=== PATIENT | female | born 1970 | race Caucasian/White ===

== ENCOUNTER 2018-02-17 06:26 | Observation (INO) ==
[~2018-02-17 06:26] MED LIST: CefOXitin Inj 2 GM in Sodium Chloride 0.9% 100 ML IV ONE; LIDOCAINE W/ SODIUM BICARB 0.5 ML SYR ONE; LIDOCAINE W/ SODIUM BICARB 0.5 ML SYR SUBD ONE; Lactated Ringers 2,000 ML PRIMARY IV ONE; Sodium Chloride 0.9% 100 ML IV ONE
[2018-02-17] MEDS: Lactated Ringers 1,000 ML PRIMARY IV SCH ×4 (06:38→15:37)
[2018-02-17 06:42] LABS: BILIRUBIN,URINE NEGATIVE (NEG); CLARITY,URINE CLEAR (CLEAR); COLOR,URINE YELLOW (Y); GLUCOSE, URINE (UA) NEGATIVE (NEG); OCCULT BLOOD,URINE SMALL (NEG); PROTEIN,URINE TRACE mg/dl (NEG); UROBILINOGEN,URINE 0.2 EU/dL (0.2)
[2018-02-17 06:43] LABS: URINE SPECIFIC GRAVITY - MAN 1.025
[2018-02-17] MEDS ORDERED: BUPIVACAINE 0.25% W/ EPI - 10 ML VIAL ONE (06:47)
[2018-02-17] MEDS ORDERED: LIDOCAINE HCL 2 % 10 ML JELLY URO-JECT TOPICAL ONE ×2 (06:47→08:51)
[2018-02-17 06:50] LABS: URINE SAMPLE TYPE CLEAN CATCH URINE
[2018-02-17] MEDS ORDERED: Acetaminophen 1000mg Inj 1,000 MG/100 ML VIAL IV ONE (06:50)
[2018-02-17] MEDS ORDERED: SCOPOLAMINE HYDROBROMIDE 1.5 MG - 1 EACH PATCH TRANSDERM ONE (06:50)
[2018-02-17 06:51] LABS: BACTERIA,URINE RARE; SQUAMOUS EPITHELIAL CELL,UR MANY
[2018-02-17 06:56] LABS: Hematocrit [HCT] 40.9 % (37.0-47.0); Hemoglobin [HGB] 13.4 g/dL (12.0-16.0)
[2018-02-17] MEDS ORDERED: KETAMINE 100 MG/1 ML - 5 ML ONE (07:08)
[2018-02-17] MEDS ORDERED: MIDAZOLAM 5 MG/1 ML ONE (07:08)
[2018-02-17] MEDS ORDERED: SUFENTANIL 50 MCG/1 ML ONE (07:08)
[2018-02-17] MEDS ORDERED: PROPOFOL 10 MG/1 ML (200 MG/20 ML) VIAL IV ONE (07:08)
[2018-02-17] MEDS ORDERED: ROCURONIUM 10 MG/1 ML - 5 ML VIAL IVP ONE (07:28)
[2018-02-17] MEDS ORDERED: LIDOCAINE MPF 2% - 5 ML (20 MG/1 ML) ONE (07:30)
[2018-02-17] MEDS ORDERED: Sodium Chloride 0.9% vial 10 ML ONE (07:30)
[2018-02-17] MEDS ORDERED: ONDANSETRON 4 MG/2 ML VIAL IVP PRN (07:37)
[2018-02-17] MEDS ORDERED: LIDOCAINE W/ SODIUM BICARB 0.5 ML SYR SUBD PRN (07:37)
[2018-02-17] MEDS ORDERED: Prochlorperazine Edisylate Inj 10mg/2ml vial IVP PRN (07:37)
[2018-02-17] MEDS ORDERED: ATROPINE SULFATE 0.4 MG/1 ML VIAL IVP PRN (07:37)
[2018-02-17] MEDS ORDERED: fentaNYL Inj 100 MCG/2 ML VIAL IVP PRN (07:37)
[2018-02-17] MEDS ORDERED: Ondansetron ODT Tab 8 MG TAB PO PRN ×2 (07:37→10:36)
--- NOTE | 2018-02-17 07:38 | OB.OP.NOTE ---
Operative Report Surgeon: Abdiel Management Architect: Jesse Muñiz MD Anesthesia Type: General Anesthesia Provider: Halle Sarah CRNA Surgery Date: 02/17/18 Preoperative Diagnosis: Menorrhagia with unsuccessful treatment with monophasic combined oral contraceptive pills. Dysmenorrhea. Patient desires definitive management with hysterectomy. The patient declines other alternatives with continued medical management or with endometrial ablation. Postoperative Diagnosis: Same Procedure: Robotic-assisted laparoscopic hysterectomy. Bilateral salpingectomy Estimated Blood Loss (mL): 130 Fluids: 1800 mL LR. 125 mL urine. Toradol 15 mg IV. B&O suppository per rectum Complications: None apparent Findings at Surgery: Slightly enlarged uterus Fallopian tubes status post tubal ligation. The patient had informed me that the tubal ligation was done 6 weeks laparoscopically but the fallopian tubes weren't sections as though a tubal was completed historically. The ovaries bilaterally appeared normal and were left intact. This is per patient request to not have her ovaries removed. Indications for the Procedure: Recently, The patient is a 47-year-old Using bilateral tubal ligation for contraception with menometrorrhagia for several months. The patient also has dysmenorrhea. Please see my HPI below when I first saw her in 2 months ago. The patient has been on OCPs For 2 months and is being treated for hypothyroidism that went untreated for more than a year but the patient is still having MMR. The patient desires Definitive management with a hysterectomy. The patient expressed that she did not want to try an endometrial ablation secondary to her history of dysmenorrhea. The patient did have an endometrial biopsy. Inactive endometrium with exogenous hormone effect. No hyperplasia was seen with the endometrial biopsy. Currently, the patient states that she would like to keep her ovaries unless the ovaries appear abnormal or there is endometriosis. Patient history: The patient is a 47-year-old LMP 11/24/2017 with a history of a laparoscopic bilateral tubal ligation for contraception who presents today for menometrorrhagia. The patient's recent history is that the patient had regular menses until September 2017. Then the patient did not have a menses for 6 weeks and started bleeding on 11/24/2017 and has bled since that time. The patient was started on Provera on 12/06/2017 and this helped her bleeding somewhat but the patient continues to have some bleeding now. The patient also has had some cramping. The patient does not have a history of MMR. Since her last child who is age 10, the patient states her menses have been fairly regular. The patient saw her primary care provider in November 2017 and had a normal Pap smear with negative HPV. The patient does report a history of hypothyroidism and she was on thyroid medicine but she ran out of the medicine and has not had follow-up. Past medical history without hypertension, diabetes or asthma. The patient does report the thyroid issues. Past surgical history significant for low back surgery with the fusion of L5-S1 , laparoscopic bilateral tubal ligation, and the patient I've years ago had an abdominoplasty and breast augmentation. The patient has allergies to oxycodone. The patient is not allergic to Tylenol. The patient does not smoke tobacco. Never has. Rare alcohol. No drugs. OB history vaginal delivery X4 with the largest being 9 lbs. 6 oz.No complications for her. The patient also had 1 ectopic , 2 miscarriages and one elective AB. 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 The patient had an optometry exam 1 or 2 years ago. The patient does not have a history of glaucoma. The patient has a family history of heart disease, diabetes, colon cancer, and the patient's One sister had a spontaneous subarachnoid hemorrhage and the patient's other sister had a brain bleed of some type. Patient not sure. The patient today did have a normal MRA of her brain in 2014 except for some mild peripheral vascular disease of the internal carotid arteries. Assessment & Plan Problems 1. Menometrorrhagia N92.1 The patient has menometrorrhagia and this continues even though the patient has been on medroxyprogesterone and then a monophasic combined oral contraceptive pill. The patient did have an endometrial biopsy which showed inactive endometrium with exogenous hormone effect. No hyperplasia. The patient was also found to be hypothyroid and levothyroxine was started almost 2 months ago. The patient and I discussed options of continued use of oral contraceptive pills and her levothyroxine and hopefully her MMR would improve. Mirena IUD was also discussed with patient but patient declined. We also discussed endometrial ablation with [employer] and due to the fact that the patient has dysmenorrhea, the patient does not want to try the NovaSure endometrial ablation. The patient wishes definitive management with a hysterectomy And bilateral salpingectomy. The Indications, Alternatives, benefits, and risks were discussed with the patient, but not limited to, infection, bleeding, damage to bowel, bladder, nerve, vessel, blood transfusion with associated risk, Possible laparotomy to complete surgery, severe postoperative infection requiring readmission and re-operation and possible transfer to a tertiary care hospital for further treatment and surgery, blood clots to the legs or lungs, need for hormone therapy, chronic pain, pain with intercourse, poor wound healing especially since the patient has had an abdominoplasty in the past, even though the patient does not have significant prolapse currently, the patient may have prolapse after the hysterectomy requiring surgery to correct the vaginal prolapse-I discussed this with the patient on the morning of the surgery after thinking about this with the patient 's history being a with her largest baby being 9 lbs. 6 oz. (Consent form was amended with date and time), and the low risk of were discussed with the patient in detail. We also discussed a bilateral oophorectomy since the patient is 48 years old and the average age of menopause is 51-52. We also discussed the risk of ovarian cancer is 1 and 70 patients. We also discussed the April 2002 women's health initiative study article that discussed patients who were in their 60s taking both an estrogen and a progestin had a slight increased risk for breast cancer after 5 years of taking hormone therapy. I explained to the patient that usually I have patients on hormone therapy for 5 years and then determine how they do off of the hormone therapy. Most patients do well off hormone therapy but there is an occasional patient that needs to continue this. As long as the patient understands the risk of breast cancer are slightly increased with hormone therapy after 5 years, I would continue the estrogen therapy. Patient expressed understanding. Also we discussed that I like patient to have vaginal abstinence for 10 weeks after surgery to allow for vaginal cuff healing. The patient expressed understanding and the consent form was signed. Currently, the patient would like to keep her ovaries unless her ovaries appear abnormal or there is endometriosis. If the repeat ovaries appear abnormal, I would like to remove them and the patient stated that this is fine and this is written on the consent form. If I find endometriosis at the time of surgery, I would suggest taking the ovaries and the patient expressed concurrence with this and would like her ovaries removed if she has endometriosis. I also explained to the patient that in the next week if she changes her mind and would like her ovaries removed with the surgery, that would be fine. She just would let me know prior to the surgery. Of note, the patient did consider oophorectomy and would like to keep her ovaries unless they appear abnormal or there is endometriosis present. I expressed understanding with the patient's desire to keep her ovaries. Description of Procedure: After the risks, benefits, alternatives and indication of a robotic-assisted laparoscopic hysterectomy and bilateral salpingectomy and oophorectomy if her ovaries appeared abnormal were discussed with the patient in detail, the patient had signed a consent forms previously and updated them on the day of surgery, the patient was taken to the operating room. The patient was placed on the operating room table ensuring that her low back was comfortable since she has had low back surgery. The patient underwent general endotracheal anesthesia without complication. The patient was placed in yellowfin stirrups in the dorsal lithotomy position. A FLOORWORKER DISTRIBUTOR exam was completed. The Cytotec tablets that the patient placed last night was to be removed but I could not palpate the tablet. This was for cervical ripening. This would allow the uterine manipulator to be placed easier. The patient's cervix was palpated. The uterus was attempted be palpated but secondary to the patient's body habitus was slightly difficult to palpate. Fundus of the uterus was slightly enlarged and about 4 cm below the patient's umbilicus. The patient was prepped and draped sterilely. Attention was turned to the patient's vagina and bladder. A Sy catheter was placed to drain the patient's bladder. A weighted speculum was placed posteriorly and then a [place] retractor was placed anteriorly and the cervix was minimally visualized and was very high in the patient's pelvis. The cervix was grasped with a single-tooth tenaculum. The uterus was sounded to 10 cm. A 10 cm balloon tip was selected. A small Brad ring and uterine manipulator was selected. The uterine manipulator was assembled. I placed the balloon tip through the patient's cervix and the balloon was insufflated. The Brad ring was then placed around the patient's cervix in the usual fashion and by palpation the Brad ring was determined to be around the patient's cervix 360. Gloves were changed. Attention was then turned to the patient's abdomen. Marcaine with epinephrine was injected supraumbilically and then about a 1.4 cm incision was made. Sharp towel clamps were then placed on either side of that incision for elevating the patient's abdomen and the varies needle was placed intra-abdominally. Saline was used to ensure that the varies needle was intra- abdominal and the saline test was positive for the varies needle being intra- abdominal. CO2 gas was then allowed to be insufflated on low flow initially and then high flow. After about 4 L of CO2 gas was insufflated into the patient 's abdomen, the abdomen was tympanic. The varies needle was removed. The trocar and sleeve with the scope in place was placed under direct visualization while tenting up the patient's abdomen with the towel clamps. Under direct visualization, the patient's abdomen was entered without complication. The abdomen was inspected. The appendix was not visualized. Liver appeared normal. The right lateral abdomen was then inspected and under direct visualization, Marcaine with epinephrine was injected into the skin and then the subcutaneous tissue and about a 1 cm incision was made. The trocar and sleeve was then placed under direct visualization. The same was done on the left lateral abdomen. 3 ports were then in the patient's abdomen. The robot was then brought over to the table and the 3 ports were docked to the robot in the usual fashion. The monopolar scissors were placed in the right lateral port, the PK bipolar was placed in the left lateral port and the camera was placed in the supraumbilical port. Smoke evacuator was placed on the right lateral port. Attention was then turned to the robotic console. I was able to visualize the uterus and tubes and ovaries. Both ovaries appeared normal and the decision was made to keep both ovaries intact since that was the patient's wishes. Photographs were taken of the ovaries, uterus, fallopian tubes. The patient had informed me that she had had a tubal ligation and she thought she had had a laparoscopic tubal ligation about 6 weeks but the fallopian tubes appeared in sections such as though she had a tubal with a minilaparotomy and a bilateral partial salpingectomy. Attention was turned to the patient's right fallopian tube and the mesosalpinx was bovied with the bipolar secondary to vascularity and then incised with the monopolar scissors all the way up to the cornua keeping the fallopian tube intact. The same was done on the left side. There appeared to be very good hemostasis. The patient's right round ligament was bovied using the bipolar. This was completed several times and then incised using the monopolar scissors. The patient's left round ligament was bovied using the bipolar. This was completed several times and incised using the monopolar scissors. The utero- ovarian complex on the patient's left side was then bovied using the bipolar and then incised using the monopolar to free the ovary from the uterus. The uterine arteries on the left side were then skeletonized to allow the ureter to drop away from the uterine artery vessel. The uterine arteries on the patient's left side were then bovied using the bipolar and then incised using the monopolar. The patient's utero-ovarian complex on the patient's right side was then bovied using the bipolar and then incised using the monopolar to free the ovary from the uterus. The uterine arteries on the right side were then skeletonized to allow the ureter to drop away from the uterine artery on the patient's right side. The uterine arteries on the patient's right side were then bovied using the bipolar and then incised using the monopolar. Using the monopolar scissors a bladder flap was then created. The bladder was then dissected off of the lower uterine segment and cervix retracting with the PK bipolar and then using the monopolar scissors to gently incise the tissue between the bladder and the cervix. A good bladder flap was created. I then asked my TILE SHADER physician partner, Dr. Jesse Muñiz, to operate from the console as he was my acquisitions assistant during the above part. I then assisted Dr. Muñiz as he bovied a couple more vessels on the right and left lateral aspects of the patient's cervix to ensure that the uterine vessels were taking care of for the colpotomy which would take place. An anterior colpotomy was then completed using the monopolar scissors and the Brad ring was then visualized. A posterior colpotomy was then completed elevating the uterus in an anteflexed position. Then the lateral colpotomy was then performed on the patient's right side and then left side and the uterus and cervix and fallopian tubes were freed 360 circumferentially. The uterus and cervix and fallopian tubes were removed vaginally intact. The ovaries were left in place per the patient wishes. There appeared to be very good hemostasis. Copious amounts of irrigation was then used to irrigate and then suctioned. There appeared to be very good hemostasis. A 0-V lock suture was then advanced through the patient's vagina and using the robotic needle mechanic driver, the vaginal cuff was closed including vaginal mucosa and peritoneum posteriorly. This was done in a continuous fashion starting on the patient's left side and working towards the right angle and then running the suture back to the midline. There appeared to be very good hemostasis. The needle was left in place on the peritoneum of the bladder flap to be retrieved in a couple minutes. The vaginal cuff as well as the other areas appeared to be hemostatic. There did not appear to be any bleeding. Good hemostasis. The robotic part of this surgery was then completed. The robot was undocked from the 3 laparoscopic ports after the instruments were removed. A scope was then placed through the right lateral port and a grasper was placed through the supraumbilical port to grasp the needle and suture-0-V lock suture with needle. This was grasped and then removed. Sponge lap and needle counts were correct 2. CO2 gas was allowed to escape out of the patient's abdomen. The patient was taken out of Trendelenburg. S hook retractors were placed supraumbilically and the fascia was visualized and grasped with Donora clamps anteriorly and posteriorly. 0 Vicryl suture on a UR 6 needle was then used to close the fascia in a figure- of-eight suture. Constantly tenting up the fascia with the David clamps while placing the suture through the fascia under direct visualization. The suture was then tied. The fascia appeared to be intact. A cystoscopy was then performed. The Sy catheter was removed. A 70 cystoscope was then placed and both the right and left ureteral orifice was visualized. There was a good jets of urine visualized on the right ureteral orifice and then the left ureteral orifice. Additionally, there was a good bubble at the bladder dome that was visualized. This signified that the bladder was intact. The cystoscopy was completed after the fluid was allowed to drain from the patient's bladder. The subcutaneous tissue of all 3 port sites was irrigated and then closed with 4 -0 Monocryl suture. The skin of all 3 port sites were then closed in a subcuticular fashion using 3- 0 Stratafix suture. One half inch Steri-Strips were then placed over all 3 incisions and then OpSite was placed over the supraumbilical incision after a 2 2 x 2's were placed. A small dressing was placed over the right and left lateral port sites after the Steri-Strips were placed. Sponge lap and needle counts were correct 2. A B&O suppository had been placed rectally. The Sy catheter had been removed earlier as discussed above. There was no vaginal bleeding at the completion of the case. The patient was awakened from her general endotracheal anesthesia and brought to the PACU in stable condition. Plan: The patient would be placed on observation status for 23 hours observation. Hopefully, the patient will be discharged tomorrow morning. I did speak with the patient's family as the patient had requested this to the nurse preoperatively. I spoke with the patient's mother and sister. Photographs of the surgery were shown to the family and they kept one set of photographs for the patient.
--- NOTE | 2018-02-17 07:39 | CRNA.PROGR ---
Anesthesia Recovery Phase I - Post Anesthesia Evaluation Patient's Condition on Arrival in Phase I: Stable Patient's Condition on Arrival in Phase II: Stable (medicated for pain.) Pain Level: 6
--- NOTE | 2018-02-17 07:39 | CRNA.PROGR ---
Anesthesia Time - - Start date: 02/17/18 End date: 02/17/18 - Procedure/Recovery Time Anesthesia : Time In: 07:57 Anesthesia : Time Out: 10:37 Anesthesia : Total Time: 160 - Total Anesthesia Time Total Anesthesia Time (minutes): 160 - Other Weight: 100.698 kg Height: 5 ft 7 in Body Mass Index (BMI): 34.7 Physical Status: P2 (BMI) Anesthesia Type: General Anesthesia : ET
--- NOTE | 2018-02-17 07:40 | CRNA.PROGR ---
Post Anesthesia Phase II - Post Anesthesia Phase II Patient Stable and Discharged To: Med/Surg Care Assumed By Surgeon: Clifford Meadows MD Temperature: 98 F Pulse Rate: 80 Respiratory Rate: 16 Blood Pressure: 122/84 Pulse Ox: 97 Total Estefani Score at Discharge: 9 Post Anesthesia Discharge Criteria Met: Yes
[2018-02-17] MEDS ORDERED: Lactated Ringers 1,000 ML PRIMARY IV SCH (07:45)
[2018-02-17] MEDS ORDERED: Opium-Belladonna 30-16.2mg 1 EACH SUPP.RECT RECTAL ONE (08:49)
[2018-02-17] MEDS ORDERED: DEXAMETHASONE PF 10 MG/1 ML VIAL ONE (09:40)
[2018-02-17] MEDS ORDERED: ONDANSETRON 4 MG/2 ML VIAL ONE (09:41)
[2018-02-17] MEDS ORDERED: LIDOCAINE HCL 2 % 10 ML JELLY URO-JECT TOPICAL PRN (10:36)
[2018-02-17] MEDS: KETOROLAC 15 MG/1 ML VIAL IVP SCH ×3 (10:45→23:19)
[2018-02-17] MEDS: HYDROmorphone 2 MG/1 ML IVP PRN ×5 (10:52→11:26)
[2018-02-17] MEDS ORDERED: HYDROmorphone 2 MG/1 ML ONE (10:54)
[2018-02-17] MEDS ORDERED: Lactated Ringers 1,000 ML PRIMARY IV ONE (11:31)
[2018-02-17] MEDS: HYDROcodone-APAP 5 MG -325 MG TABLET PO PRN ×3 (11:59→20:32)
--- NOTE | 2018-02-17 16:30 | PDOC(PROG) ---
Subjective Post Op Day: 0 Pain Management: IV Toradol Sy Catheter: No Flatus: No Diet: Regular Ambulating: Yes Concerns / Additional Information: The patient states that she has some pain but is doing okay. Assesstment / Plan Assessment / Plan: Assessment: Postoperative day #0 status post robotic-assisted laparoscopic hysterectomy and bilateral salpingectomy. Patient is doing well. Plan: Continue observation.
[2018-02-17] MEDS ORDERED: DOCUSATE 100 MG CAPSULE PO SCH (21:00)
[2018-02-18] MEDS: HYDROcodone-APAP 5 MG -325 MG TABLET PO PRN ×2 (04:58→08:59)
[2018-02-18] MEDS: KETOROLAC 15 MG/1 ML VIAL IVP SCH (04:58)
[2018-02-18 05:12] LABS: BASOPHILS # (AUTO) 0.01 10*3/UL; BASOPHILS % (AUTO) 0.1 % (0-1); EOSINOPHILS # (AUTO) 0 10*3/UL; EOSINOPHILS % (AUTO) 0 % (0-8); Hematocrit [HCT] 36.5 % (37.0-47.0); Hemoglobin [HGB] 11.8 g/dL (12.0-16.0); LYMPHOCYTES # (AUTO) 1.66 10*3/uL; MEAN CORPUSCULAR HEMOGLOBIN 27.9 PG (27-31); MEAN CORPUSCULAR HGB CONC 32.3 g/dL (33-37); MEAN CORPUSCULAR VOLUME 86.3 FL (81-99); MEAN PLATELET VOLUME 12.4 FL (7.4-12.2); MONOCYTES # (AUTO) 0.74 10*3/UL (0.3-0.8); MONOCYTES % (AUTO) 7.1 % (5-15); NEUTROPHILS # (AUTO) 8.03 10*3/UL; NEUTROPHILS % (AUTO) 76.7 % (50-80); RED BLOOD COUNT 4.23 10^6/uL (4.20-5.40)
[2018-02-18 05:19] LABS: PLATELET MORPHOLOGY COMMENT NORMAL MORPHOLOGY (NORM); RBC MORPHOLOGY COMMENT NORMAL MORPHOLOGY (NORM); WBC MORPHOLOGY COMMENT NORMAL MORPHOLOGY (NORM)
[2018-02-18 05:30] LABS: BLOOD UREA NITROGEN 12 mg/dL (7-22)
--- NOTE | 2018-02-18 07:58 | PDOC(PROG) ---
Subjective Post Op Day: 1 Pain Management: IV Toradol Sy Catheter: No Flatus: No Diet: Regular Ambulating: Yes Concerns / Additional Information: The patient still has some pelvic pain and cramping but is doing better than yesterday with regards to pain. The patient has not passed flatus yet. The patient desires to go home. Objective - General General Appearance: POSITIVE: No Acute Distress, Cooperative - Cardiovacular Cardiovascular Exam: POSITIVE: RRR Edema: No Pedal Edema Extremities: Negative Austin's - Bilaterally - Respiratory Respiratory Exam: POSITIVE: Clear to Auscultation - Bilaterally - Abdomen Bowel Sounds: Present (All 4 quadrants) Abdominal Wound Assessment: Steri Strips Applied - - Additional Details: Abdomen is soft without guarding or rebound but appropriately tender. Lungs clear to auscultation Heart regular rate and rhythm Glucose this morning was 166. Looking at her records, the patient had an elevated glucose of 116 in October 2015. Assesstment / Plan Assessment / Plan: Assessment: Postoperative day #1 status post robotic-assisted laparoscopic hysterectomy and bilateral salpingectomy. Patient's H&H this morning is good. White count is normal. Patient's glucoses morning was elevated at 166. With history of elevated in October 2015. Plan: Discharge patient home today Follow-up with me one week The patient should see her primary care provider for evaluation of increased glucose Usual precautions were discussed with me but also the nurse will go over usual postoperative instructions.
[2018-02-18 11:28] VITALS: BP 122/84; RESP 16; TEMP 98; O2SAT 97
== END 2018-02-18 09:15 | disposition home or self-care (01) ==
LOC: MED/SURG 06:26 → OR 06:26
PROVIDERS: ADMIT Obstetrics & Gynecology; ATTEND Obstetrics & Gynecology